=== PATIENT | female | born 1980 | race African-American/Black ===

== ENCOUNTER 2022-05-22 11:05 | Inpatient (IN) | payer OTHER ==
[2022-05-22] MEDS ORDERED: ONDANSETRON 4 MG/2 ML VIAL ONE (13:22)
[2022-05-22] MEDS ORDERED: KETOROLAC TROMETHAMINE 30 MG/1 ML VIAL ONE (13:22)
[2022-05-22] MEDS ORDERED: KETOROLAC TROMETHAMINE 30 MG/1 ML VIAL IVPUSH ONE (13:30)
[2022-05-22] MEDS ORDERED: ONDANSETRON 4 MG/2 ML VIAL IVPUSH ONE (13:30)
[2022-05-22] MEDS ORDERED: SODIUM CHLORIDE 0.9% 500 ML INFUS.BAG IV ONE ×2 (13:30→19:36)
[2022-05-22] MEDS ORDERED: ACETAMINOPHEN 1000 MG/100 ML BAG IVPB ONE (13:32)
[2022-05-22 13:53] LABS: HEMATOCRIT 30.9 % (32.4-45.2); HEMOGLOBIN 9.8 GM/dL (10.7-15.3); MCH 22.4 pg (25.7-33.7); MCHC 31.7 g/dl (32.0-36.0); MEAN CELL VOLUME 70.8 fl (80-96); MEAN PLT VOLUME 6.8 fl (7.5-11.1); PLATELET COUNT 578 10^3/uL (134-434); RBC 4.36 M/mm3 (3.60-5.2); RDW 17.9 % (11.6-15.6); WHITE BLOOD COUNT 27.3 K/mm3 (4.0-10.0)
[2022-05-22 13:57] LABS: EPI CELLS 21 /uL (0-25.1); HYALINE CASTS 1 /uL (0-3.1); PH,URINE 5.5 (5.0-8.0); URINE APPEARANCE CLOUDY; URINE BACTERIA 127 /uL (0-1359); URINE BILIRUBIN NEGATIVE (NEGATIVE); URINE COLOR YELLOW; URINE GLUCOSE (UA) NEGATIVE (NEGATIVE); URINE KETONE 1+ (NEGATIVE); URINE LEUK ESTERASE 1+ (NEGATIVE); URINE NITRITE NEGATIVE (NEGATIVE); URINE PROTEIN TRACE (NEGATIVE); URINE WBC 27 /uL (0-25.8)
[2022-05-22 14:00] LABS: URINE RBC 42.4 /uL (0-23.9)
[2022-05-22] MEDS ORDERED: ACETAMINOPHEN INJECTION 100 ML IVPB ONE ×2 (14:01→14:24)
[2022-05-22 14:18] LABS: ALBUMIN 3.2 g/dl (3.4-5.0); BLOOD UREA NITROGEN 13.8 mg/dL (7-18)
[2022-05-22 14:21] LABS: CREATININE 0.7 mg/dL (0.55-1.3)
[2022-05-22 14:22] LABS: TOT PROT 8.2 g/dl (6.4-8.2)
[2022-05-22 14:23] LABS: BILIRUBIN,TOTAL 0.3 mg/dL (0.2-1)
[2022-05-22 14:27] LABS: ANISOCYTOSIS 2+; MACROCYTOSIS 0
[2022-05-22] MEDS ORDERED: SODIUM CHLORIDE 0.9% 1000 ML INFUS.BAG IV ONE (14:58)
[2022-05-22] MEDS ORDERED: PIPERACILLIN/TAZOB 4.5 GM 4.5 GM in DEXTROSE 5%-WATER 100 ML IVPB ONE (17:46)
[2022-05-22] MEDS ORDERED: PIPERACILLIN/TAZOB 4.5 GM 4.5 GM/100 ML BAG IVPB ONE (17:52)
[2022-05-22] MEDS ORDERED: METOCLOPRAMIDE HCL INJECTION 10 MG/2 ML VIAL IVPB ONE (19:36)
[2022-05-22] MEDS ORDERED: METOCLOPRAMIDE HCL INJECTION 10 MG/2 ML VIAL ONE (20:23)
[2022-05-22] MEDS ORDERED: ACETAMINOPHEN 325 MG TABLET (FP) PO PRN (21:03)
[2022-05-22] MEDS ORDERED: VANCOMYCIN 1 GM/200 ML PREMIX BAG (RESTRICTED TO ID ONLY) IVPB ONE (22:12)
[2022-05-22] MEDS ORDERED: ONDANSETRON 4 MG/2 ML VIAL IVPUSH PRN (22:20)
[2022-05-22] MEDS ORDERED: MELATONIN 5 MG TABLETS PO PRN (22:20)
[2022-05-22] MEDS: CEFTRIAXONE 1 GM in DEXTROSE 5%-WATER - 50 ML IVPB SCH (23:47)
[2022-05-23 03:16] VITALS: BMI 28.5
[2022-05-23 08:42] LABS: BASO % 0.3 % (0-2.0); HEMATOCRIT 26.3 % (32.4-45.2); HEMOGLOBIN 8.1 GM/dL (10.7-15.3); LYMPH % 7.4 % (8-40); MCH 21.9 pg (25.7-33.7); MCHC 30.8 g/dl (32.0-36.0); MEAN CELL VOLUME 71.1 fl (80-96); MEAN PLT VOLUME 6.7 fl (7.5-11.1); MONO % 7.4 % (3.8-10.2); NEUT % 84.9 % (42.8-82.8); PLATELET COUNT 438 10^3/uL (134-434); RBC 3.69 M/mm3 (3.60-5.2); RDW 18.2 % (11.6-15.6); WHITE BLOOD COUNT 23.4 K/mm3 (4.0-10.0)
[2022-05-23 09:06] LABS: CALCIUM 7.8 mg/dL (8.5-10.1)
[2022-05-23 09:07] LABS: BLOOD UREA NITROGEN 6.3 mg/dL (7-18)
[2022-05-23 09:10] LABS: CREATININE 0.7 mg/dL (0.55-1.3); PHOSPHOROUS 2.9 mg/dL (2.5-4.9)
[2022-05-23 09:11] LABS: TOT PROT 6.8 g/dl (6.4-8.2)
[2022-05-23 09:12] LABS: BILIRUBIN,TOTAL 0.2 mg/dL (0.2-1)
[2022-05-23 09:31] LABS: ALBUMIN 2.5 g/dl (3.4-5.0)
[2022-05-23] MEDS: MULTIVITAMINS (DAILY MVI) TABLET (FP) PO SCH (09:40)
[2022-05-23] MEDS: POLYETHYLENE GLYCOL (HEALTHYLAX) 3350 17 GM PACKET PO SCH (09:40)
[2022-05-23] MEDS: PANTOPRAZOLE 40 MG TABLET PO SCH (09:40)
[2022-05-23] MEDS: ENOXAPARIN NA (PORCINE) 40 MG/0.4 ML DISP.SYRIN SQ SCH (09:40)
[2022-05-23] MEDS ORDERED: CEFTRIAXONE 1 GM in DEXTROSE 5%-WATER - 50 ML IVPB SCH (10:00)
[2022-05-23 10:10] LABS: ANISOCYTOSIS 0; HELMET CELLS 0; HOWELL-JOLLY BODIES 0; MACROCYTOSIS 0; OVALOCYTE 0; ROULEAU 0; SICKELED CELLS 0; TARGET CELLS 0; TEAR DROP CELLS 0; TOXIC GRANULATION 0
[2022-05-23] MEDS ORDERED: BISACODYL 5 MG TABLET.DR (FP) PO ONE (10:35)
[2022-05-23 10:38] VITALS: RESP 18
[2022-05-23] MEDS: DOXYCYCLINE INJECTION 100 MG in DEXTROSE 5%-WATER 100 ML IVPB SCH ×2 (15:11→22:42)
[2022-05-23] MEDS: IBUPROFEN 400 MG TABLET (FP) PO PRN (15:59)
[2022-05-23] MEDS: CEFTRIAXONE 1 GM in DEXTROSE 5%-WATER - 50 ML IVPB SCH (22:00)
[2022-05-24] MEDS ORDERED: LACTULOSE 20 GM/30 ML UDC (FOR ORAL USE ONLY) PO ONE (10:54)
[2022-05-24] MEDS: PANTOPRAZOLE 40 MG TABLET PO SCH (11:03)
[2022-05-24] MEDS: MULTIVITAMINS (DAILY MVI) TABLET (FP) PO SCH (11:04)
[2022-05-24] MEDS: ENOXAPARIN NA (PORCINE) 40 MG/0.4 ML DISP.SYRIN SQ SCH (11:11)
[2022-05-24] MEDS: POLYETHYLENE GLYCOL (HEALTHYLAX) 3350 17 GM PACKET PO SCH (11:11)
[2022-05-24] MEDS: IBUPROFEN 400 MG TABLET (FP) PO PRN (12:14)
[2022-05-24] MEDS: DOXYCYCLINE INJECTION 100 MG in DEXTROSE 5%-WATER 100 ML IVPB SCH ×2 (13:07→23:04)
[2022-05-24] MEDS: CEFTRIAXONE 1 GM in DEXTROSE 5%-WATER - 50 ML IVPB SCH (22:17)
[2022-05-25 09:24] LABS: BASO % 0.5 % (0-2.0); EOS % 0.4 % (0-4.5); HEMATOCRIT 28.2 % (32.4-45.2); HEMOGLOBIN 9.1 GM/dL (10.7-15.3); LYMPH % 13.7 % (8-40); MCH 23.4 pg (25.7-33.7); MCHC 32.2 g/dl (32.0-36.0); MEAN CELL VOLUME 72.6 fl (80-96); MONO % 2.7 % (3.8-10.2); NEUT % 82.7 % (42.8-82.8); PLATELET COUNT 566 10^3/uL (134-434); RBC 3.88 M/mm3 (3.60-5.2); RDW 17.9 % (11.6-15.6); WHITE BLOOD COUNT 13.9 K/mm3 (4.0-10.0)
[2022-05-25] MEDS: ENOXAPARIN NA (PORCINE) 40 MG/0.4 ML DISP.SYRIN SQ SCH (09:55)
[2022-05-25] MEDS: DOXYCYCLINE INJECTION 100 MG in DEXTROSE 5%-WATER 100 ML IVPB SCH (10:18)
[2022-05-25] MEDS: MULTIVITAMINS (DAILY MVI) TABLET (FP) PO SCH (10:19)
[2022-05-25] MEDS: PANTOPRAZOLE 40 MG TABLET PO SCH (10:19)
[2022-05-25] MEDS: IRON SUCROSE INJECTION 200 MG in SODIUM CHLORIDE 90 ML IVPB SCH (10:34)
[2022-05-25] MEDS: POLYETHYLENE GLYCOL (HEALTHYLAX) 3350 17 GM PACKET PO SCH ×3 (10:34→22:00)
[2022-05-25] MEDS: metroNIDAZOLE 500 MG TABLET PO SCH ×2 (14:26→22:42)
[2022-05-25] MEDS: DOXYCYCLINE HYCLATE 100 MG CAPSULE PO SCH (17:35)
[2022-05-25] MEDS: CEFTRIAXONE 1 GM in DEXTROSE 5%-WATER - 50 ML IVPB SCH (22:00)
[2022-05-26] MEDS: POLYETHYLENE GLYCOL (HEALTHYLAX) 3350 17 GM PACKET PO SCH ×2 (06:29→13:58)
[2022-05-26] MEDS: metroNIDAZOLE 500 MG TABLET PO SCH ×2 (06:30→13:58)
[2022-05-26] MEDS: IRON SUCROSE INJECTION 200 MG in SODIUM CHLORIDE 90 ML IVPB SCH ×2 (08:36→09:37)
[2022-05-26] MEDS: ENOXAPARIN NA (PORCINE) 40 MG/0.4 ML DISP.SYRIN SQ SCH (09:17)
[2022-05-26] MEDS: MULTIVITAMINS (DAILY MVI) TABLET (FP) PO SCH (09:38)
[2022-05-26] MEDS: DOXYCYCLINE HYCLATE 100 MG CAPSULE PO SCH (09:38)
[2022-05-26] MEDS ORDERED: LACTULOSE 20 GM/30 ML UDC (FOR ORAL USE ONLY) PO ONE (09:53)
[2022-05-26] MEDS ORDERED: IRON SUCROSE INJECTION 200 MG in SODIUM CHLORIDE 90 ML IVPB ONE (10:00)
[2022-05-26 13:54] VITALS: BP 116/59; PULSE 86; TEMP 98.2
[2022-05-27] MEDS ORDERED: IRON SUCROSE INJECTION 200 MG in SODIUM CHLORIDE 90 ML IVPB ONE (10:00)
[2022-05-27 16:13] LABS: ATYPICAL pANCA <1:20 titer (Neg:<1:20); C-ANCA <1:20 titer (Neg:<1:20)
== END 2022-05-26 16:00 | disposition home or self-care (01) | DRG 531 ==
LOC: JER 11:05 → INTOOBSV 20:41 → JERBED 20:41 → J5S 23:12 → OBSVTOIN 05-23 01:07
PROVIDERS: ADMIT Internal Medicine; ATTEND Internal Medicine
DX: N73.9 Female pelvic inflammatory disease, unspecified (principal); D25.9 Leiomyoma of uterus, unspecified; G43.909 Migraine, unspecified, not intractable, without status migrainosus; N92.1 Excessive and frequent menstruation with irregular cycle; D72.829 Elevated white blood cell count, unspecified; D64.9 Anemia, unspecified; K59.00 Constipation, unspecified; D17.79 Benign lipomatous neoplasm of other sites; E78.5 Hyperlipidemia, unspecified; K76.0 Fatty (change of) liver, not elsewhere classified; F12.90 Cannabis use, unspecified, uncomplicated; D50.0 Iron deficiency anemia secondary to blood loss (chronic); K56.7 Ileus, unspecified; E66.9 Obesity, unspecified; Z68.28 Body mass index [BMI] 28.0-28.9, adult; R10.32 Left lower quadrant pain; B99.9 Unspecified infectious disease
CPT/HCPCS: 0241U-QW; 36415; 70450-TC; 74177-TC; 76775-TC; 76830-TC; 80053; 81003; 82272; 82728; 82977; 83520; 83540; 83550; 83690; 83735; 84100; 84439; 84443; 84703; 85025; 85045; 85651; 86038; 86140; 86256; 86705; 86708; 86803; 87040; 87086; 87491; 87517; 87591; 93005; 93010; 93306-TC; 99285-25; G0378; J1756

== ENCOUNTER 2023-06-20 04:17 | Day surgery (SDC) | payer OTHER ==
[2023-06-17 09:36] VITALS: BMI 34.7
[2023-06-20 08:52] VITALS: TEMP 97.7
[2023-06-20 09:00] VITALS: RESP 16
[2023-06-20 09:21] VITALS: BP 114/72; PULSE 71
== END 2023-06-20 10:03 | disposition home or self-care (01) ==
LOC: JASU-ENDO 04:17 → EDSEX 08:00 → JASU-ENDO 10:03
PROVIDERS: ATTEND Internal Medicine Gastroenterology
PROC: 0DB98ZX Excision of Duodenum, Via Natural or Artificial Opening Endoscopic, Diagnostic (ICD-10-PCS; 2023-06-20)
PROC: 0DB78ZX Excision of Stomach, Pylorus, Via Natural or Artificial Opening Endoscopic, Diagnostic (ICD-10-PCS; 2023-06-20)
PROC: 0DJD8ZZ Inspection of Lower Intestinal Tract, Via Natural or Artificial Opening Endoscopic (ICD-10-PCS; principal; 2023-06-20 08:00)
DX: Z12.11 Encounter for screening for malignant neoplasm of colon (principal); D50.9 Iron deficiency anemia, unspecified; K64.8 Other hemorrhoids; K29.80 Duodenitis without bleeding; K44.9 Diaphragmatic hernia without obstruction or gangrene; K29.00 Acute gastritis without bleeding
CPT/HCPCS: 43239; G0121; 81025; 88305-TC; 88342-TC

== ENCOUNTER 2023-10-22 19:33 | Emergency (ER) | payer OTHER ==
[2023-10-22 20:09] VITALS: BP 140/92; PULSE 82; RESP 18; TEMP 98.2; BMI 32.3
[2023-10-22] MEDS: SODIUM CHLORIDE 0.9% 500 ML INFUS.BAG IV ONE (20:25)
[2023-10-22 20:32] LABS: HEMATOCRIT 41.1 % (32.4-45.2); HEMOGLOBIN 13.1 G/dL (10.7-15.3); MCH 28.4 pg (25.7-33.7); MCHC 31.9 g/dl (32.0-36.0); MEAN CELL VOLUME 88.7 fl (80-96); PLATELET COUNT 309.3 10^3/uL (134-434); RBC 4.63 10^6/uL (3.60-5.2); RDW 20.7 % (11.6-15.6); WHITE BLOOD COUNT 12.8 10^3/uL (4.0-10.8)
[2023-10-22] MEDS: DIPHTH,PERTUSS(ACELL),TET 0.5 ML DISP.SYRIN IM ONE (20:40)
[2023-10-22] MEDS ORDERED: DIPHTH,PERTUSS(ACELL),TET 0.5 ML DISP.SYRIN IM ONE (20:41)
[2023-10-22 20:52] LABS: ALBUMIN 4.3 g/dl (3.4-5.0); ALK PHOS 45 U/L (45-117); ANION GAP 9 mmol/L (4-13); BILIRUBIN,TOTAL 0.3 mg/dl (0.2-1); CALCIUM 9.7 mg/dl (8.5-10.1); CHLORIDE 103 mmol/L (98-107); CO2 22 mmol/L (21-32); CREATININE 0.9 mg/dl (0.6-1.3); GLUCOSE,RANDOM 98 mg/dl (74-106); MAGNESIUM 1.9 mg/dL (1.8-2.4); PHOSPHOROUS 4.7 (2.5-4.9); SGOT/AST 14 U/L (15-37); SGPT/ALT 14 U/L (7-52); SODIUM 134 mmol/L (136-145); TOT PROT 7.3 g/dl (6.4-8.2)
[2023-10-22 20:55] LABS: PLATELET ESTIMATE SLT INCREASE
[2023-10-22 22:18] LABS: HIV INTERPRETATION NEGATIVE (NEGATIVE)
== END 2023-10-22 22:43 | disposition home or self-care (01) ==
LOC: FER 19:33
PROC: 3E0234Z Introduction of Serum, Toxoid and Vaccine into Muscle, Percutaneous Approach (ICD-10-PCS; principal; 2023-10-22)
DX: R55 Syncope and collapse (principal); K03.81 Cracked tooth; W18.30XA Fall on same level, unspecified, initial encounter; Z23 Encounter for immunization
CPT/HCPCS: 36415; 70450-TC; 70486-TC; 71046-TC-FY; 72125-TC; 80053; 81003; 81015; 83735; 84100; 84443; 84484; 84703; 85027; 86803; 87389; 90471; 90715; 93005; 99285-25